=== PATIENT | female | born 1960 | race Caucasian/White ===

== ENCOUNTER 2020-05-03 05:55 | Day surgery (SDC) | payer BC ==
[~2020-05-03] VITALS: Ht 152.4 cm; Wt 62.6 kg
[2020-05-03] VITALS (17 sets, daily range): BP systolic 121–149; BP diastolic 59–81
[2020-05-03] MEDS ORDERED: CEFAZOLIN SODIUM 1 GM VIAL ONE ×4 (06:03→12:32)
[2020-05-03] MEDS ORDERED: CALC-190 PO (06:23)
[2020-05-03] MEDS ORDERED: ASPI-1197 PO (06:23)
[2020-05-03 06:37] LABS: INR 0.92 (0.85-1.15)
[2020-05-03] MEDS ORDERED: LACTATED RINGERS 1000ML 1,000 ML IV ONE (06:56)
[2020-05-03] MEDS ORDERED: LIDOCAINE PF 2% 5ML ABBOJECT ONE (07:30)
[2020-05-03] MEDS ORDERED: SUCCINYLCHOLINE CHLORIDE 20 MG/ML 10 ML VIAL ONE (07:30)
[2020-05-03] MEDS ORDERED: ROCURONIUM 10MG/1ML SYR 10 MG/ML ML ONE (07:31)
[2020-05-03] MEDS ORDERED: PROPOFOL 10 MG/ML 20ML VIAL IV ONE (07:31)
[2020-05-03] MEDS ORDERED: FENTANYL CITRATE PF 50 MCG/1 ML 2ML VIAL ONE (07:32)
[2020-05-03] MEDS ORDERED: MIDAZOLAM HCL 1 MG/ML 2ML VIAL ONE (07:32)
[2020-05-03] MEDS ORDERED: KETAMINE 50MG/ML SYRINGE 50 MG/ML DISP.SYRIN IV ONE (07:34)
[2020-05-03] MEDS ORDERED: ROPIVACAINE 0.5% 5MG/ML 30ML IJ ONE (07:34)
[2020-05-03] MEDS ORDERED: CEFAZOLIN SODIUM 1 GM VIAL IVP ONE (08:00)
[2020-05-03] MEDS ORDERED: CEPH500B PO (08:19)
[2020-05-03] MEDS ORDERED: HYDR-4457 PO (08:19)
[2020-05-03] MEDS ORDERED: MEPERIDINE-PF 25 MG/ML SYG ONE (09:32)
[2020-05-03] MEDS ORDERED: KETOROLAC TROMETHAMINE 30MG/ML ONE (09:32)
[2020-05-03] MEDS ORDERED: GLYCOPYRROLATE 1 MG/5 ML SYRINGE ONE (10:31)
[2020-05-03] MEDS ORDERED: ONDANSETRON HCL 4 MG/2 ML VIAL ONE (10:31)
[2020-05-03] MEDS ORDERED: NEOSTIGMINE 5MG/5ML SYR IV ONE (10:32)
--- NOTE | 2020-05-03 12:15 | NUR ---
PATIENT ARRIVED TO DAY PATIENT VIA STRETCHER BY FARAZ MILTON RN. PATIENT [id number], RESPIRATIONS UNLABORED. DENIES ANY PAIN AT THIS TIME, VITAL SIGNS WNL. DRESSING/SPLINT TO LEFT LOWER EXTREMITY IS DRY/INTACT, NO DRAINAGE NOTED. PATIENT STATES THAT HER LEFT LEG FEELS NUMB (PATIENT RECEIVED NERVE BLOCK IN OR)
--- NOTE | 2020-05-03 12:30 | NUR ---
DISCHARGE INSTRUCTIONS PROVIDED TO PATIENT'S SON ([employer]). FOLLOW UP APPOINT,ENT PROVIDED AND PRESCRIPTIONS SENT TO PHARMACY BY DR DEE. INFORMED PATIENT AND SON TO [employer]DERER [employer]SEMBLER PRESCRIPTIONS. POST-OP INSTRUCTIONS/HANDOUTS PROVIDED WELL. ALL QUESTIONS/CONCERNS ADDRESSED.
--- NOTE | 2020-05-03 12:50 | NUR ---
PATIENT DISCHARGED FROM FACILITY VIA WHEELCHAIR BY YAKELIN AND ASSISTED INTO PRIVATE VEHICLE DRIVEN BY DAYNA
== END 2020-05-03 12:50 | disposition home or self-care (01) ==
LOC: DAH 05:55 → SUH 05:55
PROVIDERS: ATTEND Orthopaedic Surgery
DX: S82.842A Displaced bimalleolar fracture of left lower leg, initial encounter for closed fracture (principal); S93.422A Sprain of deltoid ligament of left ankle, initial encounter; M25.572 Pain in left ankle and joints of left foot; Z98.891 History of uterine scar from previous surgery; Z79.899 Other long term (current) drug therapy; Z88.1 Allergy status to other antibiotic agents; Z98.890 Other specified postprocedural states; W19.XXXA Unspecified fall, initial encounter; Y93.89 Activity, other specified; Y92.89 Other specified places as the place of occurrence of the external cause
CPT/HCPCS: 27695; 27814; 36415; 64447; 73610; 76942; 85610; A4215; A4221; A4222; A4223; A4649 ×5; A4663; A4930; A6223; C1713 ×10; C1776 ×2; J0330; J0690 ×4; J1885; J2001; J2175; J2250; J2405; J2704; J2710; J2795; J3010; J3490 ×2; J7030 ×2; J7120; Q4051